=== PATIENT | male | born 1945 | race Caucasian/White ===

== ENCOUNTER 2023-07-02 12:53 | Outpatient (OUT) | payer MEDICARE, OTHER, SELFPAY ==
--- NOTE | 2023-07-02 | XR_ITS ---
The [address] [address] Patient Name: DACIA-------- Tanvi SAUCEDA MRN: [id number] date: 1945 Sex: M Assigned Patient Location: [facility] Current Patient Location: [facility] Accession/Order Number: [id number] Exam Date: 07/02/2023 11:50 Report Date: 07/02/2023 15:37 At the request of: MARC LOGAN Procedure: XR foot FARZANEH min 3V EXAMINATION: XR foot FARZANEH min 3V HISTORY: IMAGING IN PODIATRY ; bilateral foot pain, pes planus COMPARISON: No relevant comparison available. FINDINGS: RIGHT FINDINGS: BONES: Moderate degenerative changes of the tarsal metatarsal joints and complete loss of the plantar arch. Marked degenerative changes of the first metatarsophalangeal joint favoring osteoarthritis. SOFT TISSUES: No visible soft tissue swelling. OTHER: Negative. LEFT FINDINGS: BONES: Moderate degenerative changes of the tarsal metatarsal joints and complete loss of the plantar arch. SOFT TISSUES: No visible soft tissue swelling. OTHER: Negative. XR/XR foot FARZANEH min 3V IMPRESSION: RIGHT CONCLUSION: 1. Marked pes planus and moderate degenerative changes of the midfoot. 2. 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 LEFT CONCLUSION: 1. Marked pes planus and moderate degenerative changes of the midfoot. Electronically authenticated by: EBENEZER LUONG Date: 07/02/2023 15:37
== END 2023-07-02 12:54 | disposition home or self-care (01) ==
LOC: RAD 13:02
PROVIDERS: Visit Provider Physician Assistant
DX: M21.42 Flat foot [pes planus] (acquired), left foot (principal); M21.41 Flat foot [pes planus] (acquired), right foot
CPT/HCPCS: 73630

== ENCOUNTER 2023-10-23 13:18 | Outpatient (OUT) | payer MEDICARE, OTHER, SELFPAY ==
--- NOTE | 2023-10-23 13:46 | XR_ITS ---
The [address] [address] Patient Name: DACIA SAUCEDA MRN: [id number] date: 1945 Sex: M Assigned Patient Location: [facility] Current Patient Location: [facility] Accession/Order Number: [id number] Exam Date: 10/23/2023 14:03 Report Date: 10/23/2023 14:28 At the request of: YING AKERS Procedure: XR chest 2V EXAMINATION: XR chest 2V HISTORY: Cough, Positive COVID 10/16/23 COMPARISON: XR chest 03/29/2021 FINDINGS: LUNGS: Elevated right hemidiaphragm with trace amount stranding in right lung base; similar compared to 2020 suggesting this may represent chronic scarring. Mild opacities within left lateral costophrenic angle. VASCULATURE: No increased pulmonary vasculature. PLEURA: No pneumothorax, effusion, or pleural thickening. CARDIAC: No cardiomegaly or cardiac silhouette abnormality. MEDIASTINUM: No visible mass or adenopathy. BONES: No fracture or visible bone lesion. OTHER: Negative. XR/XR chest 2V IMPRESSION: 1. New mild infiltrates versus atelectasis within lateral left lung base. Electronically authenticated by: EBENEZER LUONG Date: 10/23/2023 14:28
== END 2023-10-23 13:19 | disposition home or self-care (01) ==
PROVIDERS: PCP Family Medicine; Visit Provider Family Medicine
DX: R05.9 Cough, unspecified (principal); Z86.16 Personal history of COVID-19
CPT/HCPCS: 71046